=== PATIENT | male | born 1965 | race Caucasian/White ===

== ENCOUNTER 2019-05-25 00:44 | Emergency (ER) | payer SELFPAY ==
[~2019-05-25] VITALS: Ht 175.3 cm; Wt 83.9 kg
[2019-05-25 00:45] VITALS: BP 153/100
== END 2019-05-25 03:00 ==
LOC: ER 00:46
DX: S22.31XA Fracture of one rib, right side, initial encounter for closed fracture (principal); M47.896 Other spondylosis, lumbar region; V43.52XA Car driver injured in collision with other type car in traffic accident, initial encounter; Y93.89 Activity, other specified; Y99.8 Other external cause status; Y92.410 Unspecified street and highway as the place of occurrence of the external cause
CPT/HCPCS: 70450; 70486; 71250; 74176; 93005